=== PATIENT | female | born 1970 | race African-American/Black ===

== ENCOUNTER 2016-09-27 10:35 | Observation (INO) | payer OTHER, MEDICAID ==
[2016-09-26 14:48] LABS: ASPARTATE AMINO TRANSFERASE 15 U/L (15-37); BLOOD UREA NITROGEN 13 mg/dL (7-18)
[~2016-09-27] VITALS: Ht 154.9 cm; Wt 75.2 kg
[~2016-09-27 10:35] MED LIST: AMIT25TA PO; BUPIVACAINE/PF 0.5% ONE; LIDOCAINE/PF 1%, 30ML ONE; METF10002 PO; METO50TA82 PO; ORPH100T PO; ROPIvacaine/PF 0.5%, 20 ML ONE
[2016-09-27] MEDS ORDERED: LACTATED RINGERS 1,000 ML IV SCH (11:07)
[2016-09-27 11:08] VITALS: BP 116/77
[2016-09-27] MEDS ORDERED: MULT-230 PO (11:19)
[2016-09-27] MEDS ORDERED: OMEG1CAP12 PO (11:19)
[2016-09-27] MEDS ORDERED: EPHEDRINE 50 MG/ML, 1ML IVPush PRN (12:00)
[2016-09-27] MEDS ORDERED: hydrALAzine 20 MG/ML, 1ML IV PRN (12:00)
[2016-09-27] MEDS ORDERED: MIDAZOLAM 1 MG/ML, 2ML IV PRN (12:00)
[2016-09-27] MEDS ORDERED: MEPERIDINE/PF 25MG/0.5ML IVPush PRN (12:00)
[2016-09-27] MEDS ORDERED: ONDANSETRON 2MG/ML, 2ML IVPush PRN (12:00)
[2016-09-27] MEDS ORDERED: PROMETHAZINE 25 MG/ML, 1ML IV PRN (12:00)
[2016-09-27] MEDS ORDERED: ACETAMINOPHEN 325 MG TABLET PO PRN (12:00)
[2016-09-27] MEDS ORDERED: LABETALOL 5MG/ML, 20ML IV PRN (12:00)
[2016-09-27] MEDS ORDERED: HYDROmorphone 1 MG/ML, 1ML IV PRN (12:00)
[2016-09-27] MEDS ORDERED: OXYcodone 5 MG/5 ML ORAL.SOL UDC PO PRN (12:00)
[2016-09-27] MEDS ORDERED: HYDROcodone/APAP 7.5-325MG/15ML UDC PO PRN (12:00)
[2016-09-27 12:09] LABS: HCG UR OBC PASS
[2016-09-27] MEDS ORDERED: FENTANYL PF 250 MCG/5ML ONE (12:20)
[2016-09-27] MEDS ORDERED: MIDAZOLAM 1 MG/ML, 2ML ONE (12:20)
[2016-09-27] MEDS ORDERED: ONDANSETRON 2MG/ML, 2ML ONE (13:13)
[2016-09-27] MEDS ORDERED: PROPOFOL 10 MG/ML, 50ML ONE (13:13)
[2016-09-27] MEDS ORDERED: FENTANYL PF 100 MCG/2ML ONE (14:12)
[2016-09-27] MEDS: FENTANYL PF 100 MCG/2ML IV PRN ×6 (14:19→15:55)
[2016-09-27] MEDS ORDERED: ACETAMINOPHEN 650 MG/20.3 ML UDC ONE (15:15)
[2016-09-27] MEDS ORDERED: OXYcodone 5 MG/5 ML ORAL.SOL UDC ONE (15:16)
[2016-09-27] MEDS ORDERED: ORPHENADRINE MC SCH (17:30)
[2016-09-27] MEDS ORDERED: morphine SULFATE 10 MG/ML, 1ML IV PRN (17:30)
[2016-09-27] MEDS ORDERED: AMITRIPTYLINE MC SCH (17:30)
[2016-09-27] MEDS: KETOROLAC 30 MG/1 ML IV SCH (18:21)
[2016-09-27] MEDS: metFORMIN 500 MG TABLET PO SCH (18:22)
[2016-09-27] MEDS: LACTATED RINGERS 1,000 ML IV SCH (18:22)
[2016-09-27 19:30] VITALS: BP 108/66
[2016-09-27] MEDS: ONDANSETRON 2MG/ML, 2ML IVPush PRN (21:04)
[2016-09-28] MEDS: OXYcodone/APAP 5/325MG TABLET PO PRN ×3 (00:01→08:02)
[2016-09-28] MEDS: KETOROLAC 30 MG/1 ML IV SCH ×2 (01:19→10:54)
[2016-09-28 03:05] VITALS: BP 117/76
[2016-09-28] MEDS: ONDANSETRON 2MG/ML, 2ML IVPush PRN ×2 (03:05→08:02)
[2016-09-28] MEDS: LACTATED RINGERS 1,000 ML IV SCH (05:18)
[2016-09-28] MEDS: metFORMIN 500 MG TABLET PO SCH (08:36)
[2016-09-28] MEDS ORDERED: MULTIVITAMINS WITH IRON TABLET PO SCH (09:00)
[2016-09-28] MEDS ORDERED: OMEGA-3/FISH OIL CAPSULE PO SCH (09:00)
[2016-09-28] MEDS ORDERED: METOPROLOL TARTRATE 100 MG TABLET PO SCH (09:00)
[2016-09-28 09:55] VITALS: BP 119/79
== END 2016-09-28 12:04 | disposition home or self-care (01) ==
LOC: OUT 10:35 → 4NOR 17:00 → OUT 17:08
PROVIDERS: ADMIT Orthopaedic Surgery; ATTEND Orthopaedic Surgery
DX: M25.872 Other specified joint disorders, left ankle and foot (principal); M65.9 Synovitis and tenosynovitis, unspecified; M25.572 Pain in left ankle and joints of left foot
CPT/HCPCS: 29897; 36415; 71010; 80053; 81025; 82962; 93005; 96374; 96375; 96376; G0378; J1885; J2250; J2270; J2405; J2704; J2795; J3010; J3490; J7120

== ENCOUNTER 2017-01-04 09:35 | Emergency (ER) | payer OTHER, MEDICAID ==
[~2017-01-04] VITALS: Ht 154.9 cm; Wt 74.0 kg
[~2017-01-04 09:35] MED LIST changes: -BUPIVACAINE/PF 0.5% ONE; -LIDOCAINE/PF 1%, 30ML ONE; +MULT-230 PO; +OMEG1CAP23 PO; -ROPIvacaine/PF 0.5%, 20 ML ONE
[2017-01-04] MEDS ORDERED: OXYcodone/APAP 5/325MG TABLET PO ONE (10:00)
[2017-01-04] MEDS ORDERED: OXYcodone/APAP 5/325MG TABLET ONE (10:04)
[2017-01-04 11:14] LABS: HEMATOCRIT 42.7 % (34.6-47.8); HEMOGLOBIN 14.3 g/dL (11.7-16.4); WHITE BLOOD COUNT 6.4 x10^3/uL (3.4-10)
[2017-01-04 11:27] LABS: BLOOD UREA NITROGEN 8 mg/dL (7-18)
[2017-01-04 12:28] VITALS: BP 110/72
== END 2017-01-04 12:29 | disposition home or self-care (01) ==
LOC: ED 10:58
DX: N92.0 Excessive and frequent menstruation with regular cycle (principal); N93.8 Other specified abnormal uterine and vaginal bleeding; I10 Essential (primary) hypertension; E11.9 Type 2 diabetes mellitus without complications
CPT/HCPCS: 36415; 76830; 80048; 81001; 82040; 84703; 85025; 99285